=== PATIENT | male | born 1955 | race Caucasian/White ===

== ENCOUNTER 2024-02-12 14:00 | Emergency (ER) | payer OTHER ==
[~2024-02-12] VITALS: Ht 165.1 cm; Wt 67.1 kg
[2024-02-12 14:16] VITALS: BP 144/67; PULSE 97; RESP 18; TEMP 98.5; O2SAT 96
[2024-02-12] MEDS: KETOROLAC 30 MG/ML VIAL IM ONE (15:10)
[2024-02-12 15:39] LABS: APPEARANCE,URINE CLEAR (CLEAR); BILIRUBIN,URINE NEGATIVE (NEGATIVE); BLOOD, URINE 2+ (NEGATIVE); COLOR,URINE YELLOW (YELLOW); LEUKOCYTE ESTERASE ,URINE 3+ (NEGATIVE); NITRITE, URINE POSITIVE (NEGATIVE); PROTEIN,URINE 2+ (NEGATIVE); UGLUCOSE NEGATIVE (NEGATIVE); UROBILINOGEN,URINE 0.2 EU/dL (0.2 - 1)
[2024-02-12] MEDS ORDERED: METH1ADH21 TP (15:50)
[2024-02-12] MEDS ORDERED: IBUP-2213 PO (15:50)
[2024-02-12] MEDS ORDERED: METH-1681 PO (15:50)
[2024-02-12 15:51] LABS: RBC,URINE TOO NUMEROUS TO COUN /HPF (0-5); WBC,URINE TOO MANY TO COUNT /HPF (0-5)
[2024-02-12 15:52] LABS: BACTERIA,URINE >30 (MANY) /HPF (None Seen); FINE GRANULAR CASTS,URINE 0-10 /LPF (None Seen); MUCUS,URINE None Seen /LPF (None Seen); SQUAMOUS EPITHELIAL CELL,UR 0-3 (FEW) /LPF (0-3 (FEW)); TRICHOMONAS,URINE None Seen /HPF (None Seen); URINE AMORPHOUS URATE 1+ /HPF (None Seen); YEAST,URINE None Seen /HPF (None Seen)
[2024-02-12] MEDS ORDERED: METF-346 PO (15:52)
[2024-02-12] MEDS ORDERED: METO50TA20 PO (15:52)
[2024-02-12] MEDS ORDERED: LOSA-272 PO (15:52)
[2024-02-12] MEDS ORDERED: SULF-59 PO (15:54)
[2024-02-12 16:07] VITALS: BP 135/62; PULSE 90; RESP 18; TEMP 98.1; O2SAT 98
== END 2024-02-12 16:07 | disposition home or self-care (01) ==
LOC: MED 14:00
DX: S39.012A Strain of muscle, fascia and tendon of lower back, initial encounter (principal); N39.0 Urinary tract infection, site not specified; E11.9 Type 2 diabetes mellitus without complications; I10 Essential (primary) hypertension; Z76.0 Encounter for issue of repeat prescription; Z79.4 Long term (current) use of insulin; Z79.899 Other long term (current) drug therapy; X58.XXXA Exposure to other specified factors, initial encounter; Y93.89 Activity, other specified; Y92.89 Other specified places as the place of occurrence of the external cause; Y99.8 Other external cause status
CPT/HCPCS: 72100; 81001; 82948; 87086; 96372; 99284; J1885; 87186